=== PATIENT | male | born 1985 | race African-American/Black ===

== ENCOUNTER 2019-08-25 15:44 | Emergency (ER) | payer OTHER, MEDICAID, SELFPAY ==
[2019-08-25] VITALS (7 sets, daily range): BP systolic 166–214; BP diastolic 112–133; PULSE 96–125; RESP 18–24; TEMP 36.4; O2SAT 98–100; BMI 46.2
--- NOTE | 2019-08-25 16:12 | ED_ITS ---
HPI - General Adult <Leila Duff DO - Last Filed: 08/27/19 08:08> General Chief complaint: Hypertension Stated complaint: elevated blood pressure,shakey, cough for a while Time Seen by Provider: 08/25/19 16:04 Source: patient Mode of arrival: Ambulatory Limitations: no limitations History of Present Illness HPI narrative: Patient is a 34-year-old male who presents with high blood press ure and chest heaviness. He states his that he had a reading of elevated blood pressure number of years ago however at that point he did follow-up with the PCP and had normal blood pressure and has not had any issues. Over the past few days he has noticed some chest heaviness and noted that his blood pressure was elevated. He denies headache. 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 His chest heaviness does not radiate. He is noted to be tachycardic [id number] with significantly elevated blood pressure with a syst olic over 200. He states at 1 time he was on lisinopril but that was when he was at elevation that he is no longer taking. No known PCP. He denies any recent travel hemoptysis fevers chills headache weakness numbness tingling or vision changes Related Data Previous Rx's Medication Instructions Recorded hydrochlorothiazide 12.5 mg PO DAILY #60 tab 08/25/19 Allergies Allergy/AdvReac Type Severity Reaction Status Date / Time No Known Drug Allergies Allergy Verified 08/25/19 16:20 Review of Systems <DO Wili Viramontes Last Filed: 08/27/19 08:08> Review of Systems ROS Unobtainable: All systems reviewed & are unremarkable except as noted in HPI and below Constitutional Constitutional: Denies chills, Denies fever(s), Denies lethargy and Denies weakness Cardiovascular Cardiovascular: Reports chest pain, Denies irregular heart rhythm, Denies lightheadedness and Reports dyspnea on exertion Respiratory Respiratory: Reports dyspnea on exertion Gastrointestinal Gastrointestinal: Denies abdominal pain, Denies change in bowel habits, Denies diarrhea, Denies nausea and Denies vomiting Genitourinary Genitourinary: Denies hematuria, Denies flank pain, Denies urinary incontinence and Denies urinary urgency Musculoskeletal Musculoskeletal: Denies back pain, Denies muscle weakness, Denies numbness and Denies tingling Integumentary/Breasts Skin/Breast: Denies pruritus, Denies erythema, Denies rash and Denies wounds Neurologic Neurologic: Denies numbness, Denies tingling and Denies weakness Patient History <Leila Duff DO - Last Filed: 08/27/19 08:08> Medical History Patient denies medical problems (Acute) Social History Smoking Status: Never smoker Exam <DO Wili Viramontes Last Filed: 08/27/19 08:08> Initial Vital Signs Initial Vital Signs: Vital Signs Temperature 97.5 F L 08/25/19 16:12 Pulse Rate 125 H 08/25/19 16:12 Respiratory Rate 22 08/25/19 16:12 Blood Pressure 214/133 H 08/25/19 16:12 Pulse Oximetry 98 08/25/19 16:12 GENERAL: Overweight male and in [no acute] distress. HEENT: Head atraumatic,EOMI, pupils reactive, face symmetric, mucous membranes CARDIOVASCULAR: Regular rate and rhythm without murmurs, rubs or gallops. RESPIRATORY: Breath sounds equal bilaterally, no wheezes rales or rhonchi. ABDOMEN: Soft, nontender. Normoactive bowel sounds all 4 quadrants. No guarding or rebound. : No CVA tenderness EXTREMITIES: Normal range of motion, no clubbing or edema. Neurovascularly intact NEUROLOGICAL: Alert and oriented x4.Normal gait and speech. Cranial nerves II through XII grossly intact. SKIN: Warm, dry, no laceration, no petechiae, no rashes or lesions. <Alla Daniels DO - Last Filed: 08/26/19 02:30> Initial Vital Signs Initial Vital Signs: Vital Signs Temperature 97.5 F L 08/25/19 16:12 Pulse Rate 125 H 08/25/19 16:12 Respiratory Rate 22 08/25/19 16:12 Blood Pressure 214/133 H 08/25/19 16:12 Pulse Oximetry 98 08/25/19 16:12 Course <DO Wili Viramontes Last Filed: 08/27/19 08:08> Orders Ordered: Discontinued Medications Albuterol (Ventolin) 2.5 mg INH NOW ONE Stop: 08/25/19 20:04 Last Admin: 08/25/19 20:08 Dose: 2.5 mg Documented by: ARLET Labetalol HCl (Trandate) 10 mg IV NOW ONE Stop: 08/25/19 17:38 Last Admin: 08/25/19 17:55 Dose: 10 mg Documented by: ELOY Vital Signs Vital signs: Vital Signs - 8 hr 08/25/19 19:20 08/25/19 20:08 08/25/19 20:51 Pulse Rate 104 H 103 H 100 H Respiratory Rate 18 21 18 Blood Pressure 182/130 H Blood Pressure [Right Arm] 201/133 H Pulse Oximetry 99 98 98 <Alla Daniels DO - Last Filed: 08/26/19 02:30> Orders Ordered: Discontinued Medications Albuterol (Ventolin) 2.5 mg INH NOW ONE Stop: 08/25/19 20:04 Last Admin: 08/25/19 20:08 Dose: 2.5 mg Documented by: ARLET Labetalol HCl (Trandate) 10 mg IV NOW ONE Stop: 08/25/19 17:38 Last Admin: 08/25/19 17:55 Dose: 10 mg Documented by: ELOY Vital Signs Vital signs: Vital Signs - 8 hr 08/25/19 19:20 08/25/19 20:08 08/25/19 20:51 Pulse Rate 104 H 103 H 100 H Respiratory Rate 18 21 18 Blood Pressure 182/130 H Blood Pressure [Right Arm] 201/133 H Pulse Oximetry 99 98 98 Medical Decision Making <Leila Duff DO - Last Filed: 08/27/19 08:08> Lab Data Lab results reviewed: Yes I reviewed the patient's lab results. Result diagrams: 08/25/19 16:28 08/25/19 16:28 Labs: Lab Results 08/25/19 08/25/19 08/25/19 Range/Units 16:28 16:28 16:28 WBC 10.2 (4.5-11.0) X10^3/uL RBC 5.46 (4.5-5.9) X10^6/uL Hgb 14.3 (13.5-17.5) g/dL Hct 42.0 (41-53) % MCV 76.9 L (80-100) fL MCH 26.3 (26-34) PG MCHC 34.1 (30-36) % RDW 14.5 (11.6-14.8) % Plt Count 399 (150-400) X10^3/uL Neut % (Auto) 64.0 (50-75) % Lymph % (Auto) 27.5 (25-40) % [place] % (Auto) 7.1 (3-14) % Eos % (Auto) 0.5 L (2-4) % Baso % (Auto) 0.9 (0-2) % Neut # (Auto) 6500 (6988-6956) /uL Lymph # (Auto) 2800 (7614-8724) /uL [place] # (Auto) 700 (0-900) /uL Eos # (Auto) 0 (0-450) /uL Baso # (Auto) 100 (0-100) /uL PT 11.9 (10.1-12.7) SECONDS INR 1.0 (0.9-1.3) APTT 37 H (26.4-36.2) SECONDS D-Dimer (<230) ng/mL Sodium 141 (137-145) mmol/L Potassium 3.7 (3.4-5.1) mmol/L Chloride 106 (98-107) mmol/L Carbon Dioxide 28 (22-32) mmol/L BUN 18 (9-20) mg/dL Creatinine 0.90 (0.66-1.25) mg/dL Estimated GFR > 60.0 (>60) mL/min BUN/Creatinine Ratio 20.0 (6-22) Glucose 89 (70-100) mg/dL Calcium 9.7 (8.4-10.2) mg/dL Total Bilirubin 0.5 (0.2-1.3) mg/dL AST 31 (17-59) IU/L ALT 37 (<50) IU/L Alkaline Phosphatase 142 H (38-126) U/L Total Creatine Kinase 136 (55-170) U/L CK-MB (CK-2) 0.68 (<2.37) ng/mL CK-MB (CK-2) Rel Index 0.5 L (1.5-5.0) % Troponin I < 0.012 (0.01-0.034) ng/mL B-Natriuretic Peptide (<100) Total Protein 8.3 H (6.3-8.2) g/dL Albumin 4.6 (3.5-5.0) g/dL Globulin 3.7 (1.7-4.1) g/dL Albumin/Globulin Ratio 1.2 (1.0-2.8) Lipase 86 (23-300) U/L 08/25/19 08/25/19 Range/Units 16:28 16:28 WBC (4.5-11.0) X10^3/uL RBC (4.5-5.9) X10^6/uL Hgb (13.5-17.5) g/dL Hct (41-53) % MCV (80-100) fL MCH (26-34) PG MCHC (30-36) % RDW (11.6-14.8) % Plt Count (150-400) X10^3/uL Neut % (Auto) (50-75) % Lymph % (Auto) (25-40) % [place] % (Auto) (3-14) % Eos % (Auto) (2-4) % Baso % (Auto) (0-2) % Neut # (Auto) (0746-1671) /uL Lymph # (Auto) (6975-5685) /uL [place] # (Auto) (0-900) /uL Eos # (Auto) (0-450) /uL Baso # (Auto) (0-100) /uL PT (10.1-12.7) SECONDS INR (0.9-1.3) APTT (26.4-36.2) SECONDS D-Dimer 234 H (<230) ng/mL Sodium (137-145) mmol/L Potassium (3.4-5.1) mmol/L Chloride (98-107) mmol/L Carbon Dioxide (22-32) mmol/L BUN (9-20) mg/dL Creatinine (0.66-1.25) mg/dL Estimated GFR (>60) mL/min BUN/Creatinine Ratio (6-22) Glucose (70-100) mg/dL Calcium (8.4-10.2) mg/dL Total Bilirubin (0.2-1.3) mg/dL AST (17-59) IU/L ALT (<50) IU/L Alkaline Phosphatase (38-126) U/L Total Creatine Kinase (55-170) U/L CK-MB (CK-2) (<2.37) ng/mL CK-MB (CK-2) Rel Index (1.5-5.0) % Troponin I (0.01-0.034) ng/mL B-Natriuretic Peptide < 100 (<100) Total Protein (6.3-8.2) g/dL Albumin (3.5-5.0) g/dL Globulin (1.7-4.1) g/dL Albumin/Globulin Ratio (1.0-2.8) Lipase (23-300) U/L Imaging Data Chest x-ray: Radiologist's impression: PROCEDURE: XR CHEST 1V INDICATIONS: chest pain TECHNIQUE: One view of the chest was acquired. COMPARISON: None. FINDINGS: Surgical changes and devices: None. Lungs and pleura: Lungs are clear. No pleural effusions or pneumothorax. Mediastinum: Mediastinal contours appear normal. Heart size is enlarged. Bones and chest wall: No suspicious bony lesions. Overlying soft tissues appear unremarkable. IMPRESSION: Cardiomegaly without overt heart failure. Dictated by: Leonid Denton M.D. on 08/25/2019 at 15:51 MDM Narrative Medical decision making narrative: The patient persistently tachycardic with some shortness of breath with exertion D-dimer is low however my suspicion is still high, will CT for PE. He did receive 1 dose of labetalol for elevated bl ood pressure however he remains relatively asymptomatic. Overall no sign of significant end-organ damage. Patient signed out to Dr. Daniels for follow-up on CT for PE <Alla Daniels, - Last Filed: 08/26/19 02:30> Lab Data Lab results reviewed: Yes I reviewed the patient's lab results. Labs: Lab Results 08/25/19 08/25/19 08/25/19 Range/Units 16:28 16:28 16:28 WBC 10.2 (4.5-11.0) X10^3/uL RBC 5.46 (4.5-5.9) X10^6/uL Hgb 14.3 (13.5-17.5) g/dL Hct 42.0 (41-53) % MCV 76.9 L (80-100) fL MCH 26.3 (26-34) PG MCHC 34.1 (30-36) % RDW 14.5 (11.6-14.8) % Plt Count 399 (150-400) X10^3/uL Neut % (Auto) 64.0 (50-75) % Lymph % (Auto) 27.5 (25-40) % [place] % (Auto) 7.1 (3-14) % Eos % (Auto) 0.5 L (2-4) % Baso % (Auto) 0.9 (0-2) % Neut # (Auto) 6500 (4750-4113) /uL Lymph # (Auto) 2800 (3753-4450) /uL [place] # (Auto) 700 (0-900) /uL Eos # (Auto) 0 (0-450) /uL Baso # (Auto) 100 (0-100) /uL PT 11.9 (10.1-12.7) SECONDS INR 1.0 (0.9-1.3) APTT 37 H (26.4-36.2) SECONDS D-Dimer (<230) ng/mL Sodium 141 (137-145) mmol/L Potassium 3.7 (3.4-5.1) mmol/L Chloride 106 (98-107) mmol/L Carbon Dioxide 28 (22-32) mmol/L BUN 18 (9-20) mg/dL Creatinine 0.90 (0.66-1.25) mg/dL Estimated GFR > 60.0 (>60) mL/min BUN/Creatinine Ratio 20.0 (6-22) Glucose 89 (70-100) mg/dL Calcium 9.7 (8.4-10.2) mg/dL Total Bilirubin 0.5 (0.2-1.3) mg/dL AST 31 (17-59) IU/L ALT 37 (<50) IU/L Alkaline Phosphatase 142 H (38-126) U/L Total Creatine Kinase 136 (55-170) U/L CK-MB (CK-2) 0.68 (<2.37) ng/mL CK-MB (CK-2) Rel Index 0.5 L (1.5-5.0) % Troponin I < 0.012 (0.01-0.034) ng/mL B-Natriuretic Peptide (<100) Total Protein 8.3 H (6.3-8.2) g/dL Albumin 4.6 (3.5-5.0) g/dL Globulin 3.7 (1.7-4.1) g/dL Albumin/Globulin Ratio 1.2 (1.0-2.8) Lipase 86 (23-300) U/L 08/25/19 08/25/19 Range/Units 16:28 16:28 WBC (4.5-11.0) X10^3/uL RBC (4.5-5.9) X10^6/uL Hgb (13.5-17.5) g/dL Hct (41-53) % MCV (80-100) fL MCH (26-34) PG MCHC (30-36) % RDW (11.6-14.8) % Plt Count (150-400) X10^3/uL Neut % (Auto) (50-75) % Lymph % (Auto) (25-40) % [place] % (Auto) (3-14) % Eos % (Auto) (2-4) % Baso % (Auto) (0-2) % Neut # (Auto) (7077-2913) /uL Lymph # (Auto) (7145-1975) /uL [place] # (Auto) (0-900) /uL Eos # (Auto) (0-450) /uL Baso # (Auto) (0-100) /uL PT (10.1-12.7) SECONDS INR (0.9-1.3) APTT (26.4-36.2) SECONDS D-Dimer 234 H (<230) ng/mL Sodium (137-145) mmol/L Potassium (3.4-5.1) mmol/L Chloride (98-107) mmol/L Carbon Dioxide (22-32) mmol/L BUN (9-20) mg/dL Creatinine (0.66-1.25) mg/dL Estimated GFR (>60) mL/min BUN/Creatinine Ratio (6-22) Glucose (70-100) mg/dL Calcium (8.4-10.2) mg/dL Total Bilirubin (0.2-1.3) mg/dL AST (17-59) IU/L ALT (<50) IU/L Alkaline Phosphatase (38-126) U/L Total Creatine Kinase (55-170) U/L CK-MB (CK-2) (<2.37) ng/mL CK-MB (CK-2) Rel Index (1.5-5.0) % Troponin I (0.01-0.034) ng/mL B-Natriuretic Peptide < 100 (<100) Total Protein (6.3-8.2) g/dL Albumin (3.5-5.0) g/dL Globulin (1.7-4.1) g/dL Albumin/Globulin Ratio (1.0-2.8) Lipase (23-300) U/L Imaging Data CTA chest: Radiologist's impression: [address] [address] [address] Scan Report Signed Patient: Sudarshan Kendall JR LMR#: [id number] : 1985Acct:[id number] Age/Sex: 34 / MDate of Service: 08/25/19 Loc: ED Accession Number: [id number] Procedure: CT angio chest PE protocol Ordering Provider: Leila Duff D.O. PROCEDURE: CT ANGIO CHEST PE PROTOCOL INDICATIONS: persistant tachycardia and sob TECHNIQUE: After the administration of intravenous contrast, 2 mm thick sections acquired from the pulmonary apices to the posterior costophrenic angles. 3-dimensional maximum intensity projection (MIP) coronal and sagittal reformats were then acquired through the thorax. For radiation dose reduction, the following was used: automated exposure control, adjustment of mA and/or kV according to patient size. COMPARISON: [facility], MICHAEL, XR CHEST 1V, 08/25/2019, 16:31. FINDINGS: Image quality: Excellent. Pulmonary arteries: Pulmonary arteries are normal in size, and demonstrate no intraluminal filling defects to suggest central pulmonary embolism. Lungs and pleura: There is a 4 mm noncalcified right middle lobe nodule seen on image 153, series 5. Lungs are otherwise clear. No pleural effusions or pneumothorax. Central and peripheral airways are patent. Mediastinum: Heart size is normal, without pericardial effusion. No mediastinal or hilar adenopathy. Thoracic aorta is normal in caliber and enhancement. Esophagus is normal in caliber, without hiatal hernia. Bones and chest wall: No suspicious bony lesions. Ribs and thoracic spine appear intact throughout. Thyroid gland is unremarkable. No axillary or supraclavicular adenopathy. Abdomen: Visualized upper abdominal solid organs appear normal in the early arterial phase of enhancement. IMPRESSION: 1. No acute pulmonary emboli. 2. No acute cardiopulmonary abnormality is identified. 3. A 4 mm noncalcified right middle lobe nodule. If the patient is at high risk for malignancy, a followup CT in 12 months can be considered. Otherwise, no further imaging required. Dictated by: En Day M.D. on 08/25/2019 at 20:02 Approved by: En Day M.D. on 08/25/2019 at 20:07 [facility] Narrative Medical decision making narrative: Patient was seen by myself, reviewed HPI with patient. Labs reviewed, CTA was reviewed. He was informed he had a pulmonary nodule. Discussed patient is not likely high risk criteria but I would recommend that he establish with primary care to fully explore this decide if he does need repeat CT imaging in 1 year. We discussed signs and symptoms the imp ortance of follow-up and stressed the importance and need for his blood pressure to be controlled. Given rx for thiazide to be started. Patient is comfortable with this plan. Discharge Plan Departure Patient Disposition: Home Clinical Impression: Hypertension Qualifiers: Hypertension type: essential hypertension Qualified Code(s): I10 - Essential (primary) hypertension Discharge Date/Time: 08/25/19 20:52 Instructions: DI for High Blood Pressure Activity Restrictions/Additional Instructions: *You have been diagnosed with hypertension Your CT shows a small pulmonary nodule, follow up with primary care to discuss if you need serial imaging in the future. CT would be repeated in 12 months if you met high risk criteria *What to do: Recommend diet and exercise. You definitely need to see and follow up with a new primary care provider. Please call the number below to set up appointment as soon as possible. *Continue to take medications as directed Hydrochlorothiazide 12.5 mg once daily *Follow up with your primary care provider in 2-3 days *Return to ER if you should have increasing chest pain shortness of breath or any new, worsening or concerning symptoms Prescriptions: New hydrochlorothiazide 12.5 mg tablet 12.5 mg PO DAILY Qty: 60 RF: 0 Referrals: [facility] [Outside]
[2019-08-25 16:35] LABS: Add Manual Diff / Slide Review NO; Basophils Absolute Auto 100 /uL (0-100); Basophils Percent Auto 0.9 % (0-2); Eosinophils Absolute Auto 0 /uL (0-450); Eosinophils Percent Auto 0.5 % (2-4); Hemoglobin 14.3 g/dL (13.5-17.5); Lymphocytes Absolute Auto 2800 /uL (1100-4500); Lymphocytes Percent Auto 27.5 % (25-40); Mean Corpuscular HGB Conc 34.1 % (30-36); Mean Corpuscular Hemoglobin 26.3 PG (26-34); Mean Corpuscular Volume 76.9 fL (80-100); Monocytes Absolute Auto 700 /uL (0-900); Monocytes Percent Auto 7.1 % (3-14); Neutrophils Absolute Auto 6500 /uL (1500-7000); Platelet Count 399 X10^3/uL (150-400); Red Blood Cell Count 5.46 X10^6/uL (4.5-5.9); Red Cell Distribution Width 14.5 % (11.6-14.8); White Blood Cell Count 10.2 X10^3/uL (4.5-11.0)
[2019-08-25 16:48] LABS: Prothrombin Time 11.9 SECONDS (10.1-12.7)
[2019-08-25 16:49] LABS: Alanine Aminotransferase 37 IU/L (<50); Albumin 4.6 g/dL (3.5-5.0); Albumin Globulin Ratio 1.2 (1.0-2.8); Alkaline Phosphatase 142 U/L (38-126); Aspartate Aminotransferase 31 IU/L (17-59); Bilirubin Total 0.5 mg/dL (0.2-1.3); Blood Urea Nitrogen 18 mg/dL (9-20); Calcium 9.7 mg/dL (8.4-10.2); Carbon Dioxide 28 mmol/L (22-32); Chloride 106 mmol/L (98-107); Creatine Kinase 136 U/L (55-170); Estimated Glomerular Filt Rate > 60.0 mL/min (>60); Globulin 3.7 g/dL (1.7-4.1); Glucose 89 mg/dL (70-100); HEMOLYSIS 17 (0-50); Lipase 86 U/L (23-300); Potassium 3.7 mmol/L (3.4-5.1); Sodium 141 mmol/L (137-145); Total Protein 8.3 g/dL (6.3-8.2)
[2019-08-25 16:51] LABS: PTT Partial Thromboplastin Tim 37 SECONDS (26.4-36.2)
[2019-08-25 16:58] LABS: D Dimer 234 ng/mL (<230)
[2019-08-25 17:01] LABS: Troponin I < 0.012 ng/mL (0.01-0.034)
[2019-08-25 17:04] LABS: CKMB % Relative Index 0.5 % (1.5-5.0); Creatine Kinase MB 0.68 ng/mL (<2.37)
[2019-08-25 17:31] LABS: B Type Natriuretic Peptide < 100 (<100)
--- NOTE | 2019-08-25 17:37 | DI.CT.S_ITS ---
PROCEDURE: CT ANGIO CHEST PE PROTOCOL INDICATIONS: persistant tachycardia and sob TECHNIQUE: After the administration of intravenous contrast, 2 mm thick sections acquired from the pulmonary apices to the posterior costophrenic angles. 3-dimensional maximum intensity projection (MIP) coronal and sagittal reformats were then acquired through the thorax. For radiation dose reduction, the following was used: automated exposure control, adjustment of mA and/or kV according to patient size. COMPARISON: [facility], CR, XR CHEST 1V, 08/25/2019, 16:31. FINDINGS: Image quality: Excellent. Pulmonary arteries: Pulmonary arteries are normal in size, and demonstrate no intraluminal filling defects to suggest central pulmonary embolism. Lungs and pleura: There is a 4 mm noncalcified right middle lobe nodule seen on image 153, series 5. Lungs are otherwise clear. No pleural effusions or pneumothorax. Central and peripheral airways are patent. Mediastinum: Heart size is normal, without pericardial effusion. No mediastinal or hilar adenopathy. Thoracic aorta is normal in caliber and enhancement. Esophagus is normal in caliber, without hiatal hernia. Bones and chest wall: No suspicious bony lesions. Ribs and thoracic spine appear intact throughout. Thyroid gland is unremarkable. No axillary or supraclavicular adenopathy. Abdomen: Visualized upper abdominal solid organs appear normal in the early arterial phase of enhancement. IMPRESSION: 1. No acute pulmonary emboli. 2. No acute cardiopulmonary abnormality is identified. 3. A 4 mm noncalcified right middle lobe nodule. If the patient is at high risk for malignancy, a followup CT in 12 months can be considered. Otherwise, no further imaging required. Dictated by: En Day M.D. on 08/25/2019 at 20:02 Approved by: En Day M.D. on 08/25/2019 at 20:07
[2019-08-25] MEDS: LABETALOL 20 MG/4 ML SYRINGE 10 MG IV (17:55)
[2019-08-25] MEDS: ALBUTEROL 2.5 MG/3 ML NEB (ADULT) INH (20:08)
== END 2019-08-25 20:52 | disposition home or self-care (01) ==
PROVIDERS: Emergency Medicine; Emergency Provider Emergency Medicine
DX: I10 Essential (primary) hypertension (principal); R07.9 Chest pain, unspecified; R00.0 Tachycardia, unspecified; R06.02 Shortness of breath
CPT/HCPCS: 36415; 71045; 71275; 80053; 82550; 82553; 83690; 83880; 84484; 85025; 85379; 85610; 85730; 93005; 94640; 96374; 99283; 99285; J7613

== ENCOUNTER 2019-09-13 21:24 | Emergency (ER) | payer OTHER, MEDICAID, SELFPAY ==
[2019-09-13 21:27] VITALS: BP 188/128; PULSE 109; RESP 14; TEMP 37.1; O2SAT 96
[2019-09-13 23:20] VITALS: BP 181/129
--- NOTE | 2019-09-13 23:21 | PC.NURSE ---
No CP, No SOB, HX HTN. Went to Walk in clinic to follow up and ask questions and they sent him here. States no problems other than feeling tired and still having HTN. 181/129 in room. States he just got set up with a PCP today and plans to follow up with them.
--- NOTE | 2019-09-13 23:34 | ED.GENADULT ---
HPI - General Adult General Chief complaint: Hypertension Stated complaint: HIGH BLOOD PRESSURE Time Seen by Provider: 09/13/19 23:34 Source: patient Mode of arrival: Ambulatory Limitations: no limitations History of Present Illness HPI narrative: The patient was recently seen in this ER, diagnosed with hypertension. He was discharged on hydrochlorothiazide 12.5 mg daily. He was seen at a walk-in clinic earlier today due to fatigue, thinking this may be related to the medication. The nurse practitioner who saw him there sent him to the ER. His blood pressure remains elevated. He denies headache, visual changes, chest pain or dyspnea. He is hydrating well. He has good urine output. His evaluation here within this past month showed normal CBC, normal CMP, a normal cardiac monitoring. There is a family history of hypertension. He has no family history of diabetes, or hyperlipidemia. He does not use tobacco or drugs. He is otherwise in good health. Related Data Previous Rx's Medication Instructions Recorded hydrochlorothiazide 12.5 mg PO DAILY #60 tab 08/25/19 lisinopril 5 mg PO DAILY #30 tab 09/14/19 Allergies Allergy/AdvReac Type Severity Reaction Status Date / Time No Known Drug Allergies Allergy Verified 09/13/19 14:49 Review of Systems Review of Systems ROS Unobtainable: All systems reviewed & are unremarkable except as noted in HPI and below Constitutional Constitutional: Denies chills, Denies fever(s), Denies headache(s), Denies lethargy and Reports malaise Eyes Eyes: Denies change in vision ENT Ears, Nose, Mouth, and Throat: Denies headache(s) Comments: No complaints Cardiovascular Cardiovascular: Denies chest pain, Denies lightheadedness, Denies palpitations, Denies dyspnea, Denies dyspnea on exertion and Denies orthopnea Respiratory Respiratory: Denies cough, Denies dyspnea, Denies dyspnea on exertion and Denies wheezing Gastrointestinal Gastrointestinal: Denies abdominal pain, Denies change in bowel habits, Denies diarrhea, Denies nausea and Denies vomiting Musculoskeletal Comments: No lower extremity edema. Integumentary/Breasts Skin/Breast: Denies rash and Denies sores Neurologic Neurologic: Denies headache(s) and Denies focal weakness Endocrine Endocrine: Denies palpitations Allergic/Immunologic Allergic/Immunologic: Denies wheezing Patient History Medical History (Updated 09/14/19 @ 00:23 by Dakota Brown MD) Hypertension (Acute) Patient denies medical problems (Acute) Surgical History (Updated 09/13/19 @ 23:45 by Dakota Brown MD) No significant past surgical history (Acute) Social History Smoking Status: Never smoker Smoking Status: Never smoker alcohol intake frequency: 0-2 drinks per day Substance Use Type: does not use Exam Initial Vital Signs Initial Vital Signs: Vital Signs Temperature 98.7 F 09/13/19 21:27 Pulse Rate 109 H 09/13/19 21:27 Respiratory Rate 14 09/13/19 21:27 Blood Pressure 188/128 H 09/13/19 21:27 Pulse Oximetry 96 09/13/19 21:27 Const General: cooperative and well developed Nutritional Appearance: well nourished Orientation: alert, awake, oriented x3 and not confused HENMT Head: normocephalic and atraumatic Resp Effort & Inspection: normal respiratory effort, able to speak in complete sentences, no respiratory distress and no use of accessory muscles Auscultation: clear to auscultation bilaterally, no rales, no rhonchi and no wheezes Cardio Rate: regular rate Rhythm: regular rhythm Heart Sounds: S1 normal, S2 normal, no click, no gallops, no murmurs and no rubs Pulses: normal peripheral pulses GI Inspection: non-distended Palpation: soft, no hepatosplenomegaly, No guarding, No pulsatile mass and No tender Auscultation: normal bowel sounds Back/Spine/Pelvis Back: No back tenderness Skin General: no rashes or lesions noted Neuro General: alert, oriented x3, gait normal and no focal motor deficits Speech: speech normal Extrem General: full ROM, no clubbing, cyanosis or edema, no pedal edema and no calf tenderness Psych Appearance: well kempt Mental Status: mental status grossly normal Attitude: cooperative Thought Content: normal Course Orders Ordered: ED Orders 09/13/19 23:59 Basic Metabolic Panel Stat Complete Blood Count AUTO DIFF Stat Discontinued Medications Lisinopril (Zestril) 5 mg PO NOW ONE Stop: 09/13/19 23:43 Last Admin: 09/14/19 00:03 Dose: 5 mg Documented by: ELOY Vital Signs Vital signs: Vital Signs - 8 hr 09/13/19 21:27 09/13/19 23:20 09/14/19 00:21 Temperature 98.7 F Pulse Rate 109 H Respiratory Rate 14 Blood Pressure 188/128 H Blood Pressure [Right Arm] 181/129 H 141/92 H Pulse Oximetry 96 Medical Decision Making Lab Data Result diagrams: 09/13/19 23:59 09/13/19 23:59 Labs: Lab Results 09/13/19 09/13/19 Range/Units 23:59 23:59 WBC 7.0 (4.5-11.0) X10^3/uL RBC 5.43 (4.5-5.9) X10^6/uL Hgb 14.0 (13.5-17.5) g/dL Hct 42.1 (41-53) % MCV 77.5 L (80-100) fL MCH 25.7 L (26-34) PG MCHC 33.2 (30-36) % RDW 14.6 (11.6-14.8) % Plt Count 339 (150-400) X10^3/uL Neut % (Auto) 51.7 (50-75) % Lymph % (Auto) 38.3 (25-40) % [place] % (Auto) 7.0 (3-14) % Eos % (Auto) 1.8 L (2-4) % Baso % (Auto) 1.2 (0-2) % Neut # (Auto) 3600 (5417-7043) /uL Lymph # (Auto) 2700 (0824-4662) /uL [place] # (Auto) 500 (0-900) /uL Eos # (Auto) 100 (0-450) /uL Baso # (Auto) 100 (0-100) /uL Sodium 140 (137-145) mmol/L Potassium 3.4 (3.4-5.1) mmol/L Chloride 102 (98-107) mmol/L Carbon Dioxide 30 (22-32) mmol/L BUN 13 (9-20) mg/dL Creatinine 0.90 (0.66-1.25) mg/dL Estimated GFR > 60.0 (>60) mL/min BUN/Creatinine Ratio 14.4 (6-22) Glucose 110 H (70-100) mg/dL Calcium 9.4 (8.4-10.2) mg/dL Discharge Plan Departure Patient Disposition: Home Clinical Impression: Hypertension Qualifiers: Hypertension type: essential hypertension Qualified Code(s): I10 - Essential (primary) hypertension Discharge Date/Time: 09/14/19 00:26 Instructions: DI for High Blood Pressure Activity Restrictions/Additional Instructions: Continue your current dose of hydrochlorothiazide. Add lisinopril 5 mg daily. Drink plenty of fluids and stay well hydrated. Follow-up with her doctor as planned. Return the ER as necessary. Prescriptions: New lisinopril 5 mg tablet 5 mg PO DAILY Qty: 30 RF: 1 No Action hydrochlorothiazide 12.5 mg tablet 12.5 mg PO DAILY Qty: 60 RF: 0
[2019-09-14] MEDS: LISINOPRIL 5 MG TABLET PO (00:03)
[2019-09-14 00:09] LABS: Add Manual Diff / Slide Review NO; Basophils Absolute Auto 100 /uL (0-100); Basophils Percent Auto 1.2 % (0-2); Eosinophils Absolute Auto 100 /uL (0-450); Eosinophils Percent Auto 1.8 % (2-4); Hematocrit 42.1 % (41-53); Lymphocytes Absolute Auto 2700 /uL (1100-4500); Lymphocytes Percent Auto 38.3 % (25-40); Mean Corpuscular HGB Conc 33.2 % (30-36); Mean Corpuscular Hemoglobin 25.7 PG (26-34); Mean Corpuscular Volume 77.5 fL (80-100); Monocytes Absolute Auto 500 /uL (0-900); Neutrophils Absolute Auto 3600 /uL (1500-7000); Neutrophils Percent Auto 51.7 % (50-75); Platelet Count 339 X10^3/uL (150-400); Red Blood Cell Count 5.43 X10^6/uL (4.5-5.9); Red Cell Distribution Width 14.6 % (11.6-14.8)
[2019-09-14 00:19] LABS: BUN Creatinine Ratio 14.4 (6-22); Blood Urea Nitrogen 13 mg/dL (9-20); Calcium 9.4 mg/dL (8.4-10.2); Carbon Dioxide 30 mmol/L (22-32); Chloride 102 mmol/L (98-107); Estimated Glomerular Filt Rate > 60.0 mL/min (>60); Glucose 110 mg/dL (70-100); HEMOLYSIS < 15 (0-50); Potassium 3.4 mmol/L (3.4-5.1); Sodium 140 mmol/L (137-145)
[2019-09-14 00:21] VITALS: BP 141/92
== END 2019-09-14 00:26 | disposition home or self-care (01) ==
PROVIDERS: Emergency Provider Emergency Medicine
DX: I10 Essential (primary) hypertension (principal)
CPT/HCPCS: 36415; 80048; 85025; 99281; 99283